=== PATIENT | female | born 1960 | race Caucasian/White ===

== ENCOUNTER → 2021-03-29 10:24 | Outpatient (BNVA) | payer OTHER, SELFPAY | PROVIDERS: PCP Family Medicine; Referring Provider Family Medicine; Visit Provider Surgery ==

== ENCOUNTER 2021-04-17 20:58 | Inpatient (IN) | payer OTHER, SELFPAY ==
--- NOTE | 2021-04-01 10:24 | ECG_ITS ---
Test Reason : SOB Blood Pressure : / mmHG Vent. Rate : 077 BPM Atrial Rate : 077 BPM P-R Int : 156 ms QRS Dur : 090 ms QT Int : 402 ms P-R-T Axes : 046 017 013 degrees QTc Int : 454 ms Normal sinus rhythm Nonspecific ST abnormality Abnormal ECG No previous ECGs available Referred By: Dorcas Sosa Electronically Signed By:VALENCIA THIBODEAUX MD
[2021-04-01 11:02] LABS: MANUAL DIFF FLAG NO
[2021-04-01 11:13] LABS: Basophils Percent Auto 0.2 % (0-2); Eosinophils Absolute Auto 0.1 X10*3/uL (0.0-0.4); Eosinophils Percent Auto 1.9 % (0-4); Hematocrit 39.3 % (37-47); Hemoglobin 12.8 g/dl (12.0-16.0); Imm Gran Abs Auto 0.02 X10*3/uL (0.00-0.03); Imm Gran Pct Auto 0.3 % (0.0-0.4); Lymphocytes Absolute Auto 1.6 X10*3/uL (1.2-4.9); Lymphocytes Percent Auto 27.3 % (20-40); Mean Corpuscular HGB Conc 32.6 g/dl (31.0-35.0); Mean Corpuscular Hemoglobin 28.7 pg (27.0-33.0); Mean Corpuscular Volume 88.1 fL (80-98); Mean Platelet Volume 10.5 fL (9.4-12.3); Monocytes Absolute Auto 0.6 X10*3/uL (0.1-1.2); Monocytes Percent Auto 9.6 % (2-11); Neutrophils Absolute Auto 3.6 X10*3/uL (2.0-8.3); Neutrophils Percent Auto 60.7 % (45-73); Platelet Count 287 X10*3/uL (160-400); Red Blood Count 4.46 X10*6/uL (4.20-5.50); Red Cell Distribution Width 12.4 % (11.0-16.0); White Blood Count 5.9 X10*3/uL (4.8-10.8)
[2021-04-01 11:20] LABS: Rheumatoid Factor < 15.0 IU/mL (<15.0)
[2021-04-01 11:22] LABS: INTERNATIONAL NORM RATIO 1.1 (0.9-1.1); Prothrombin Time 12.6 SEC (10.8-13.0)
[2021-04-01 11:27] LABS: Anion Gap 14 (12-20); Blood Urea Nitrogen 17 mg/dL (9-16); Calcium 8.9 mg/dL (8.4-10.2); Carbon Dioxide 25 mmol/L (22-29); Chloride 109 mmol/L (96-108); Estimated Glomerular Filt Rate > 60; Glucose Random 108 mg/dL (60-115); Potassium 4.1 mmol/L (3.3-5.1); Sodium 144 mmol/L (135-145)
[2021-04-01 11:42] LABS: Glucose Urine UA NEG (NEG); Leukocyte Esterase Urine NEG (NEG); Nitrite Urine NEG (NEG); Urine Blood NEG (NEG); Urine Ketones NEG (NEG); Urine Protein NEG (NEG-TRACE)
[2021-04-01 11:47] LABS: Partial Thromboplastin Time 40.8 SEC (24.1-38.0)
[2021-04-01 11:53] LABS: Appearance Urine CLEAR; Color Urine YELLOW
[2021-04-01 11:55] LABS: Erythrocyte Sedimentation Rate 8 MM/HR (0-20)
[2021-04-02 14:51] LABS: Complement C3 58 mg/dL (83-193)
[2021-04-04 12:21] LABS: IgA 197 mg/dL (47-310); IgG 707 mg/dL (600-1640); IgM 43 mg/dL (50-300)
[2021-04-05 23:06] LABS: Anti Nuclear Antibody Screen POSITIVE (NEGATIVE)
[2021-04-08 11:58] VITALS: BMI 37.7
--- NOTE | 2021-04-09 12:30 | P.CONAN_ITS ---
Documented by User: Vanessa Viktoriya 04/09/21 12:39 HPI - Anesthesia Eval Consult details Narrative: 61yo F for Hernia Repair Diaphragmatic Laparoscopic recent negative cardiac w/u for CP - per [facility] documentation, likely r/t costochondritis and hernia *multiple med allergies* PMF Active Problems Active Problems: All Active Problems (Updated 04/08/21 @ 12:02 by Maryam Hernandez) Obesity (Acute) Sliding hiatal hernia (Acute) Shortness of breath (Acute) Preoperative examination (Acute) Past Medical History Medical History Anxiety Arthritis Asthma Chest pain COVID-19 vaccine administered Depression GERD (gastroesophageal reflux disease) History of postoperative nausea and vomiting Hypothyroidism Renal cyst Vitamin B12 deficiency Family History Family History Father HTN (hypertension) COPD (chronic obstructive pulmonary disease) Heart disease Mother HTN (hypertension) Brother No problems noted. Sister No problems noted. Surgical History Surgical History H/O foot surgery H/O laparoscopy History of esophagogastroduodenoscopy (EGD) History of hand surgery History of repair of hiatal hernia History of sleeve gastrectomy Hx laparoscopic cholecystectomy Hx of appendectomy Hx of section Social History Social History Household Members: Spouse Housing: House Are you a primary prompt care rn to a significant other at home: No Do you presently have visiting nurse or other home services: No Use of substances other than those prescribed or required for medical reasons: No Have you been hit, kicked, punched, or otherwise hurt by someone within the past year? If so, by whom?: No Are you DNR?: No Advance Directives Information Provided: No Recently lost weight without trying: No Eating poorly because of decreased appetite: No Nutrition Risks: No Nutritional Risk Poor oral hygiene: No (has crowns) Meds Allergies Allergy/AdvReac Type Severity Reaction Status Date / Time latex Allergy Severe respiratory Verified 04/08/21 10:58 distress codeine Allergy Intermediate vomiting/hi Verified 04/08/21 10:58 ves hydrocodone Allergy Intermediate vomiting/hi Verified 04/08/21 11:01 ves meperidine [From Demerol] Allergy Intermediate vomiting/hi Verified 04/08/21 11:02 ves nabumetone [From Relafen] Allergy Intermediate vomiting/hi Verified 04/08/21 11:03 ves oxycodone Allergy Intermediate vomiting/hi Verified 04/08/21 11:02 ves tramadol [From Ultram] Allergy Intermediate vomiting/hi Verified 04/08/21 11:03 ves clams Allergy Unknown Unknown Verified 04/08/21 11:04 hazelnut Allergy Unknown Unknown Verified 04/08/21 11:04 Sulfa (Sulfonamide Allergy Unknown Unknown Verified 04/08/21 11:04 Antibiotics) Home Medications Medication Instructions Recorded Confirmed Last Taken Type biotin 5,000 mcg sublingual tablet 5,000 mcg SUBLINGUAL DAILY 03/29/21 04/08/21 Unknown History bupropion HCl 300 mg 24 hr tablet, 300 mg PO QAM 03/29/21 04/08/21 04/17/21 History extended release levothyroxine 88 mcg capsule 88 mcg PO DAILY 03/29/21 04/08/21 04/17/21 History multivitamin with minerals 1 cap PO DAILY 03/29/21 04/08/21 Unknown History pantoprazole 20 mg tablet,delayed 40 mg PO DAILY PRN tab 03/29/21 04/08/21 Unknown History release sertraline 25 mg tablet 25 mg PO DAILY 03/29/21 04/08/21 04/17/21 History albuterol sulfate [Ventolin HFA] 2 puff INHALATION Q4-6H PRN 04/08/21 04/08/21 Unknown History cyanocobalamin (vitamin B-12) 1 ml IM QMONTH 04/08/21 04/08/21 Unknown History Exam Exam Date and Time: April 09, 2021 1230 Height,Weight and Vital Signs: Height 5 ft 0.5 in Weight 89.086 kg Pertinent Lab Results Pertinent Lab Results: Laboratory Tests 04/01/21 04/01/21 04/01/21 10:36 10:36 10:36 WBC 5.9 RBC 4.46 Hgb 12.8 Hct 39.3 MCV 88.1 MCH 28.7 MCHC 32.6 RDW 12.4 Plt Count 287 MPV 10.5 Immature Gran % (Auto) 0.3 Neut % (Auto) 60.7 Lymph % (Auto) 27.3 [place] % (Auto) 9.6 Eos % (Auto) 1.9 Baso % (Auto) 0.2 Lymph # (Auto) 1.6 [place] # (Auto) 0.6 Eos # (Auto) 0.1 Baso # (Auto) 0.0 Abs Immat Gran (auto) 0.02 Absolute Neuts (auto) 3.6 Absolute Nucleated RBC 0.000 Nucleated RBC % (auto) 0.0 ESR PT 12.6 INR 1.1 APTT 40.8 H Sodium 144 Potassium 4.1 Chloride 109 H Carbon Dioxide 25 Anion Gap 14 BUN 17 H Creatinine 0.78 Estim Creat Clear Calc TNP Estimated GFR > 60 Random Glucose 108 Calcium 8.9 Urine Color Urine Appearance Urine pH Ur Specific [place] Urine Protein Urine Glucose (UA) Urine Ketones Urine Blood Urine Nitrite Ur Leukocyte Esterase IgG Total IgA Total IgM JAXSON Interpretation Rheumatoid Factor HALIE Screen HALIE Titer HALIE Titer 2 HALIE Titer 3 HALIE Pattern HALIE Pattern 2 HALIE Pattern 3 Complement C3 Complement C4 Blood Type Antibody Screen 04/01/21 04/01/21 04/01/21 10:36 10:36 10:36 WBC RBC Hgb Hct MCV MCH MCHC RDW Plt Count MPV Immature Gran % (Auto) Neut % (Auto) Lymph % (Auto) [place] % (Auto) Eos % (Auto) Baso % (Auto) Lymph # (Auto) [place] # (Auto) Eos # (Auto) Baso # (Auto) Abs Immat Gran (auto) Absolute Neuts (auto) Absolute Nucleated RBC Nucleated RBC % (auto) ESR 8 PT INR APTT Sodium Potassium Chloride Carbon Dioxide Anion Gap BUN Creatinine Estim Creat Clear Calc Estimated GFR Random Glucose Calcium Urine Color Urine Appearance Urine pH Ur Specific [place] Urine Protein Urine Glucose (UA) Urine Ketones Urine Blood Urine Nitrite Ur Leukocyte Esterase IgG Total IgA Total IgM JAXSON Interpretation Rheumatoid Factor HALIE Screen POSITIVE A HALIE Titer 1:80 H HALIE Titer 2 TNP HALIE Titer 3 TNP HALIE Pattern SEE NOTE HALIE Pattern 2 TNP HALIE Pattern 3 TNP Complement C3 Complement C4 Blood Type A Negative Antibody Screen NEGATIVE 04/01/21 04/01/21 04/01/21 10:36 10:36 Unknown WBC RBC Hgb Hct MCV MCH MCHC RDW Plt Count MPV Immature Gran % (Auto) Neut % (Auto) Lymph % (Auto) [place] % (Auto) Eos % (Auto) Baso % (Auto) Lymph # (Auto) [place] # (Auto) Eos # (Auto) Baso # (Auto) Abs Immat Gran (auto) Absolute Neuts (auto) Absolute Nucleated RBC Nucleated RBC % (auto) ESR PT INR APTT Sodium Potassium Chloride Carbon Dioxide Anion Gap BUN Creatinine Estim Creat Clear Calc Estimated GFR Random Glucose Calcium Urine Color YELLOW Urine Appearance CLEAR Urine pH 6.0 Ur Specific [place] 1.020 Urine Protein NEG Urine Glucose (UA) NEG Urine Ketones NEG Urine Blood NEG Urine Nitrite NEG Ur Leukocyte Esterase NEG IgG Total 707 IgA Total 197 IgM 43 L JAXSON Interpretation SEE NOTE Rheumatoid Factor < 15.0 HALIE Screen HALIE Titer HALIE Titer 2 HALIE Titer 3 HALIE Pattern HALIE Pattern 2 HALIE Pattern 3 Complement C3 58 L Complement C4 15 Blood Type Antibody Screen Narrative Narrative: EKG 03/2021 Vent. Rate : 077 BPM Atrial Rate : 077 BPM P-R Int : 156 ms QRS Dur : 090 ms QT Int : 402 ms P-R-T Axes : 046 017 013 degrees QTc Int : 454 ms Normal sinus rhythm Nonspecific ST abnormality Abnormal ECG No previous ECGs available CXR 03/2021 Mild pulmonary vascular congestion, otherwise unremarkable Exercise stress 03/2021: No ischemic EKG changes 04/25 chest pain Mildly abnormal stress MIBI 03/2021 Myocardial perfusion imaging is normal without any fixed or reversible perfusion defect after exercise stress test LV function is normal at rest and with stress with normal wall motion and thickening Assessment and Plan Assessment Anesthesia Assessment: Chart Reviewed Documented by User: Isabel Geller 04/17/21 15:52 [facility] Past Medical History Medical History Anxiety Arthritis Asthma Chest pain COVID-19 vaccine administered Depression GERD (gastroesophageal reflux disease) History of postoperative nausea and vomiting Hypothyroidism Renal cyst Vitamin B12 deficiency Family History Family History Father HTN (hypertension) COPD (chronic obstructive pulmonary disease) Heart disease Mother HTN (hypertension) Brother No problems noted. Sister No problems noted. Surgical History Surgical History H/O foot surgery H/O laparoscopy History of esophagogastroduodenoscopy (EGD) History of hand surgery History of repair of hiatal hernia History of sleeve gastrectomy Hx laparoscopic cholecystectomy Hx of appendectomy Hx of section Social History Social History Household Members: Spouse Housing: House Are you a primary prompt care rn to a significant other at home: No Do you presently have visiting nurse or other home services: No Use of substances other than those prescribed or required for medical reasons: No Have you been hit, kicked, punched, or otherwise hurt by someone within the past year? If so, by whom?: No Are you DNR?: No Advance Directives Information Provided: No Recently lost weight without trying: No Eating poorly because of decreased appetite: No Nutrition Risks: No Nutritional Risk Poor oral hygiene: No (has crowns) Meds Allergies Allergy/AdvReac Type Severity Reaction Status Date / Time latex Allergy Severe respiratory Verified 04/08/21 10:58 distress codeine Allergy Intermediate vomiting/hi Verified 04/08/21 10:58 ves hydrocodone Allergy Intermediate vomiting/hi Verified 04/08/21 11:01 ves meperidine [From Demerol] Allergy Intermediate vomiting/hi Verified 04/08/21 11:02 ves nabumetone [From Relafen] Allergy Intermediate vomiting/hi Verified 04/08/21 1 1:03 ves oxycodone Allergy Intermediate vomiting/hi Verified 04/08/21 11:02 ves tramadol [From Ultram] Allergy Intermediate vomiting/hi Verified 04/08/21 11:03 ves clams Allergy Unknown Unknown Verified 04/08/21 11:04 hazelnut Allergy Unknown Unknown Verified 04/08/21 11:04 Sulfa (Sulfonamide Allergy Unknown Unknown Verified 04/08/21 11:04 Antibiotics) Home Medications Medication Instructions Recorded Confirmed Last Taken Type biotin 5,000 mcg sublingual tablet 5,000 mcg SUBLINGUAL DAILY 03/29/21 04/08/21 Unknown History bupropion HCl 300 mg 24 hr tablet, 300 mg PO QAM 03/29/21 04/08/21 04/17/21 History extended release levothyroxine 88 mcg capsule 88 mcg PO DAILY 03/29/21 04/08/21 04/17/21 History multivitamin with minerals 1 cap PO DAILY 03/29/21 04/08/21 Unknown History pantoprazole 20 mg tablet,delayed 40 mg PO DAILY PRN tab 03/29/21 04/08/21 Unknown History release sertraline 25 mg tablet 25 mg PO DAILY 03/29/21 04/08/21 04/17/21 History albuterol sulfate [Ventolin HFA] 2 puff INHALATION Q4-6H PRN 04/08/21 04/08/21 Unknown History cyanocobalamin (vitamin B-12) 1 ml IM QMONTH 04/08/21 04/08/21 Unknown History Exam Airway Mallampati Class: II TM Dist: >3cm Neck ROM: Full Loose/Missing/Broken Teeth: No Heart: RRR Lungs: CTA 5 Assessment and Plan Assessment Anesthesia Assessment: Anesthesia Plan Discussed and Chart Reviewed Final Anesthetic Review NPO: Yes ASA Class: II Final Preanesthetic Review: Meds/Allgs Chart Reviewed, Consent Obtained/Reviewed and Anes Risks/Benef Reviewed Patient Risk: Low Procedure Risk: Intermediate Anesthetic Plan Anesthetic Plan: GA Disposition: Standard PACU
--- NOTE | 2021-04-16 16:12 | MHC.SHP ---
Pre-Procedural Eval Section B Chief Complaint: diaphragmatic hernia Allergies: Allergies Allergy/AdvReac Type Severity Reaction Status Date / Time latex Allergy Severe respiratory Verified 04/08/21 10:58 distress codeine Allergy Intermediate vomiting/hi Verified 04/08/21 10:58 ves hydrocodone Allergy Intermediate vomiting/hi Verified 04/08/21 11:01 ves meperidine [From Demerol] Allergy Intermediate vomiting/hi Verified 04/08/21 11:02 ves nabumetone [From Relafen] Allergy Intermediate vomiting/hi Verified 04/08/21 11:03 ves oxycodone Allergy Intermediate vomiting/hi Verified 04/08/21 11:02 ves tramadol [From Ultram] Allergy Intermediate vomiting/hi Verified 04/08/21 11:03 ves clams Allergy Unknown Unknown Verified 04/08/21 11:04 hazelnut Allergy Unknown Unknown Verified 04/08/21 11:04 Sulfa (Sulfonamide Allergy Unknown Unknown Verified 04/08/21 11:04 Antibiotics) Plan I have reviewed the history and physical and performed a pertinent physical examination on my patient. No changes have occurred unless specified.
[2021-04-17] VITALS (14 sets, daily range): BP systolic 138–182; BP diastolic 64–85; PULSE 73–95; RESP 16–82; TEMP 36.1–36.5; O2SAT 94–100
[2021-04-17 13:32] LABS: COVID-19 Test Negative (Negative)
[2021-04-17] MEDS: Lactated Ringers 1,000 ML 100 ML IVCONT (13:35)
[2021-04-17] MEDS: ceFAZolin Sodium/Dextrose,Iso 2 GM/50 ML PIGGYBACK IV (13:36)
--- NOTE | 2021-04-17 14:27 | PM.OP ---
Brief Operative Note Date of Service: 04/17/21 Pre-op diagnosis: sliding hiatal hernia, gastroesophageal reflux disease, and chest pain Post-op diagnosis: same Procedure: Laparoscopic paraesophageal hernia repair Implants: None Surgeon: Dorcas Sosa MD Anesthesia: GETA Was an Senior Ui Software Engineer used for this Procedure?: No Senior Ui Software Engineer: Alka Sanchez Estimated blood loss (mL): 5 Pathology: none sent Condition: stable Disposition: PACU
[2021-04-17] MEDS: Scopolamine 1.5 MG PATCH.TD.3 TRANSDERMA (15:20)
--- NOTE | 2021-04-17 18:17 | P.OP_ITS ---
Operative Note Operative Note Date of Service: 04/17/21 Narrative: Patient was brought to the operating room placed on the table in supine position. General anesthesia was induced. The abdomen was prepped and draped in normal sterile fashion using ChloraPrep. Patient had artery received 2 g of IV Kefzol preoperatively and normal DVT prophylaxis was instituted. A safety time-out was performed. Next a mixture of 1% lidocaine with epinephrine 0.25% Marcaine plain was used to anesthetize the planned incision site in the left upper quadrant. A 11. Scalpel used to make a 5 mm left upper quadrant subcostal surgical incision through which a Veress needle was placed intra- abdominal. Three pops were heard going to the fascia. The saline drop test was used to confirm that the Veress needle was intra-abdominal . The abdominal cavity was insufflated to 15 mm of mercury. Next the Optiview technique was used to place a 5 mm port in the patient's left upper quadrant . We visualized inside the abdomen and there were several loose adhesions of the omentum to the lower abdominal wall and also some loose adhesions of a loop of small bowel to the lower midline abdominal wall there was no evidence of obstruction of this bowel loop. We then performed a GORAN block on the right side of the patient's abdomen. We then placed a Ana liver tractor the subxiphoid position under direct vision and used this to hold up the left lobe of the liver to the anterior abdominal wall. We secured the liver tractor to the bed using the liver retractor umanzor. We then placed a 5 mm port in the patient's right upper quadrant and a 12 mm port in the epigastrium under direct vision. We then performed the same GORAN block on the left side of the abdomen. We placed 1 additional 5 mm port in the patient's left upper quadrant just lateral to the placement of the 1st 5 mm left upper quadrant port. Next we placed the patient in reverse Trendelenburg positioning. We could visualize a large paraesophageal hernia with a portion of the gastric pouch from previous sleeve gastrectomy residing within the chest. We took down the adhesions of the stomach to the phrenoesophageal ligament circumferentially. Once the phrenoesophageal ligament was cleared circumferentially especially post eriorly we used a Kecia drain around the GE junction and secured the ends to each other using a Endoknot. We used the Holton as a fulcrum to retract the GE junction in order to get the posterior and anterior hiatus closed. We closed the posterior hiatus with a total of 3 2-0 Ethibond sutures. We closed the anterior hiatus with a total of 2 2-0 Ethibond sutures. The stomach was lying in the abdomen without any tension. We then let down the Ana liver tractor removed from the abdomen. We closed the 12 mm port site with a single suture of 0 Maxon using a laparoscopic suture passer. We removed the left upper quadrant ports under direct vision there was no bleeding noted from these port sites. We desufflated the abdomen through the last remaining port removed last ports and laparoscopic. We reapproximated all skin incisions with a 4 Monocryl subcuticular stitch. We cleaned and dried the skin incisions and applied Dermabond skin glue to all skin incisions. All counts were correct at the end the case there were no complications. The patient was awake and in stable condition prior to extubation and transfer to the recovery room.
[2021-04-17] MEDS: Haloperidol Lactate 5 MG/ML VIAL IV (19:39)
--- NOTE | 2021-04-17 20:49 | PC.NURSE ---
2047 Dr Sosa s office called regarding the patient and [place] [employer] Heather Sanchez information security risk analyst and the service stated they would call her
[2021-04-17] MEDS: ondansetron HCL 4 MG/2 ML VIAL IVPUSH (22:38)
[2021-04-17] MEDS: Famotidine/PF 20 MG/2 ML VIAL IVPUSH (22:38)
[2021-04-17] MEDS: Lactated Ringers 1,000 ML 75 ML IVCONT (23:20)
[2021-04-18 02:20] VITALS: RESP 16
[2021-04-18] MEDS: cefoTEtan disodium 2 GM in 0.9 % Sodium Chloride 50 ML IV (03:59)
[2021-04-18 06:00] VITALS: BP 143/74; PULSE 65; RESP 16; TEMP 36.5; O2SAT 97
[2021-04-18 06:25] LABS: MANUAL DIFF FLAG NO
[2021-04-18] MEDS: ondansetron HCL 4 MG/2 ML VIAL IVPUSH (06:34)
[2021-04-18 06:51] LABS: Hematocrit 36.9 % (37-47); Hemoglobin 12.2 g/dl (12.0-16.0); Imm Gran Abs Auto 0.03 X10*3/uL (0.00-0.03); Imm Gran Pct Auto 0.3 % (0.0-0.4); Lymphocytes Absolute Auto 0.8 X10*3/uL (1.2-4.9); Lymphocytes Percent Auto 9.3 % (20-40); Mean Corpuscular HGB Conc 33.1 g/dl (31.0-35.0); Mean Corpuscular Volume 87.6 fL (80-98); Mean Platelet Volume 10.8 fL (9.4-12.3); Monocytes Absolute Auto 0.5 X10*3/uL (0.1-1.2); Monocytes Percent Auto 5.3 % (2-11); Neutrophils Absolute Auto 7.5 X10*3/uL (2.0-8.3); Neutrophils Percent Auto 85.1 % (45-73); Platelet Count 266 X10*3/uL (160-400); Red Blood Count 4.21 X10*6/uL (4.20-5.50); Red Cell Distribution Width 12.6 % (11.0-16.0); White Blood Count 8.9 X10*3/uL (4.8-10.8)
[2021-04-18 07:00] LABS: Anion Gap 12 (12-20); Blood Urea Nitrogen 8 mg/dL (9-16); Calcium 9.1 mg/dL (8.4-10.2); Carbon Dioxide 26 mmol/L (22-29); Chloride 106 mmol/L (96-108); Creatinine Clr Calc Pharmacy 64.6; Estimated Glomerular Filt Rate > 60; Glucose Random 139 mg/dL (60-115); Potassium 4.3 mmol/L (3.3-5.1); Sodium 140 mmol/L (135-145)
[2021-04-18] MEDS: Famotidine/PF 20 MG/2 ML VIAL IVPUSH (08:10)
--- NOTE | 2021-04-18 09:07 | PM.PNGS ---
Subjective Subjective Date of Service: 04/18/21 Interval history: Patient feeling well, pain controlled. She is tolerating small amounts of pureed diet. She denies nausea vomiting. Vital signs are within normal limits. Physical Exam Vital Signs: Vital Signs: Last Vital Signs Temp 97.7 F 04/18/21 06:00 Pulse 65 04/18/21 06:00 Resp 16 04/18/21 06:00 BP 143/74 H 04/18/21 06:00 Pulse Ox 97 04/18/21 06:00 Body Mass Index 37.7 Const: General: cooperative, healthy appearing, comfortable and no acute distress GI: Other: Soft mild appropriate incisional tenderness. Incisions are clean dry intact. Dermabond is in place. Extrem: General: Yes normal to inspection, Yes full ROM, Yes no clubbing, cyanosis or edema and Yes no calf tenderness Progress Note: A&P Assessment and plan (1) History of repair of hiatal hernia: Status: Acute Assessment and Plan: This is a 61-year-old lady who underwent a laparoscopic laparoscopic repair of a large paraesophageal hernia. Patient doing well today. She will be discharged home to follow up with me in 2 weeks. Fall Risk Details Current Medications: Current Medications Generic Name Dose Route Start Last Admin Trade Name Freq PRN Reason Stop Dose Admin Famotidine 20 mg 04/17/21 22:20 04/18/21 08:10 Famotidine/Pf 20 Mg/2 Ml Vial IVPUSH 20 mg BID NARINDER Administration Lactated Ringer's 1,000 mls @ 75 mls/hr 04/17/21 22:20 04/17/21 23:20 Lr IVCONT 75 mls/hr .[id number] NARINDER Administration Acetaminophen 1,000 mg in 100 mls @ 16.7 mls/hr 04/17/21 23:00 04/18/21 04:28 Ofirmev IV 16.7 mls/hr .Q6H NARINDER Administration Metoclopramide HCl 10 mg 04/17/21 22:20 Metoclopramide Hcl 10 Mg/2 Ml Vial IVPUSH Q6H PRN Nausea Ondansetron HCl 4 mg 04/17/21 22:20 04/18/21 06:34 Ondansetron Hcl 4 Mg/2 Ml Vial IVPUSH 4 mg Q8H NARINDER Administration Sodium Chloride 3 ml 04/18/21 00:00 04/18/21 07:28 0.9 % Sodium Chloride Flush 3 Ml Syringe IVFLUSH Not Given QSHIFT NARINDER Time Spent With Patient Time: Total time spent is greater than 50% in coordination of care (as documented) at patient's floor/unit and/or counseling patient: Time with patient: less than 15 minutes Procedures Date of Service Date of Service: 04/18/21
--- NOTE | 2021-04-18 09:10 | PM.DS ---
DS: Providers Provider Date of Service: 04/18/21 Date of admission: 04/17/21 20:58 Date of discharge: 04/18/21 Primary care physician: Sachi Sanchez MD Admitting clinician: Dorcas Sosa Attending physician on admission: Dorcas Sosa Attending physician on discharge: Dorcas Sosa Discharging clinician: Dorcas Sosa DS: Diagnosis Discharge Diagnosis (1) History of repair of hiatal hernia: Status: Acute DS: Medications Discharge Medications Home Medications: Home Medications Medication Instructions Recorded Confirmed biotin 5,000 mcg sublingual tablet 5,000 mcg SUBLINGUAL DAILY 03/29/21 04/08/21 bupropion HCl 300 mg 24 hr tablet, 300 mg PO QAM 03/29/21 04/08/21 extended release levothyroxine 88 mcg capsule 88 mcg PO DAILY 03/29/21 04/08/21 multivitamin with minerals 1 cap PO DAILY 03/29/21 04/08/21 pantoprazole 20 mg tablet,delayed 40 mg PO DAILY PRN tab 03/29/21 04/08/21 release sertraline 25 mg tablet 25 mg PO DAILY 03/29/21 04/08/21 albuterol sulfate [Ventolin HFA] 2 puff INHALATION Q4-6H PRN 04/08/21 04/08/21 cyanocobalamin (vitamin B-12) 1 ml IM QMONTH 04/08/21 04/08/21 Previous Rx's Medication Instructions Recorded acetaminophen 1,000 mg PO Q6H #60 tab 04/17/21 docusate sodium [Colace] 100 mg PO BID #30 cap 04/17/21 hydromorphone [Dilaudid] 2 mg PO Q4H PRN #10 tab 04/17/21 ondansetron HCl 4 mg tablet 4 mg PO Q6H PRN #30 tab 04/17/21 DS: Summary Hospital Course Hospital Course: This is a 61-year-old lady who was admitted electively for a repair of a large paraesophageal hernia. Patient underwent laparoscopic repair of paraesophageal hernia and did well postoperatively. Patient had surgery finished late in the day and had some nausea following that. Given the patient's nausea patient was admitted overnight. Following day the patient was doing well she was tolerating small amounts pureed diet vital signs within normal limits and the patient was discharged home. Time Spent with Patient Time attestation: Total time spent providing and/or coordinating discharge services: Discharge coordination time: Less than 30 minutes Quality: Stroke Does the patient have a stroke diagnosis?: No Physical Exam Vital Signs: Vital Signs: Last Vital Signs Temp 97.7 F 04/18/21 06:00 Pulse 65 04/18/21 06:00 Resp 16 04/18/21 06:00 BP 143/74 H 04/18/21 06:00 Pulse Ox 97 04/18/21 06:00 Body Mass Index 37.7 DS: Data Data Completed and Pending Labs on day of discharge: Laboratory Results - last 24 hr 04/17/21 04/17/21 04/18/21 13:09 13:45 05:50 WBC 8.9 RBC 4.21 Hgb 12.2 Hct 36.9 L MCV 87.6 MCH 29.0 MCHC 33.1 RDW 12.6 Plt Count 266 MPV 10.8 Immature Gran % (Auto) 0.3 Neut % (Auto) 85.1 H Lymph % (Auto) 9.3 L [place] % (Auto) 5.3 Eos % (Auto) 0.0 Baso % (Auto) 0.0 Lymph # (Auto) 0.8 L [place] # (Auto) 0.5 Eos # (Auto) 0.0 Baso # (Auto) 0.0 Abs Immat Gran (auto) 0.03 Absolute Neuts (auto) 7.5 Absolute Nucleated RBC 0.000 Nucleated RBC % (auto) 0.0 Sodium Potassium Chloride Carbon Dioxide Anion Gap BUN Creatinine Estim Creat Clear Calc Estimated GFR Random Glucose Calcium COVID-19 ([facility]) Negative COVID-19 Clin Com See Note Blood Type A Negative Antibody Screen NEGATIVE 04/18/21 05:50 WBC RBC Hgb Hct MCV MCH MCHC RDW Plt Count MPV Immature Gran % (Auto) Neut % (Auto) Lymph % (Auto) [place] % (Auto) Eos % (Auto) Baso % (Auto) Lymph # (Auto) [place] # (Auto) Eos # (Auto) Baso # (Auto) Abs Immat Gran (auto) Absolute Neuts (auto) Absolute Nucleated RBC Nucleated RBC % (auto) Sodium 140 Potassium 4.3 Chloride 106 Carbon Dioxide 26 Anion Gap 12 BUN 8 L D Creatinine 0.92 Estim Creat Clear Calc 64.6 Estimated GFR > 60 Random Glucose 139 H Calcium 9.1 COVID-19 ([facility]) COVID-19 Clin Com Blood Type Antibody Screen Discharge Plan Discharge Anticipated Discharge Date/Time: 04/18/21 10:15 Patient Disposition: Home, Self-Care Discharge Diagnosis: s/p repair hiatal hernia Referrals: Sachi Sanchez MD [Primary Care Provider] - 1 Week Discharge Medications: New hydromorphone [Dilaudid] 2 mg tablet 2 mg PO Q4H PRN (Reason: pain) Qty: 10 RF: 0 acetaminophen 500 mg tablet 1,000 mg PO Q6H Qty: 60 RF: 1 docusate sodium [Colace] 100 mg capsule 100 mg PO BID Qty: 30 RF: 1 Continued ondansetron HCl [Zofran] 4 mg tablet 4 mg PO Q6H PRN (Reason: nausea and vomiting) Qty: 30 RF: 1 cyanocobalamin (vitamin B-12) 1,000 mcg/mL solution 1 ml IM QMONTH RF: 0 albuterol sulfate [Ventolin HFA] 90 mcg/actuation Hfa Aerosol Inhaler 2 puff INHALATION Q4-6H PRN (Reason: Shortness Of Breath Or Wheezing) RF: 0 levothyroxine 88 mcg capsule 88 mcg PO DAILY RF: 0 bupropion HCl [Wellbutrin XL] 300 mg tablet extended release 24 hr 300 mg PO QAM RF: 0 sertraline [Zoloft] 25 mg tablet 25 mg PO DAILY RF: 0 pantoprazole 20 mg tablet,delayed release (DR/EC) 40 mg PO DAILY PRN (Reason: Acid Reflux) RF: 0 multivitamin with minerals Capsule 1 cap PO DAILY RF: 0 biotin 5,000 mcg tablet, sublingual 5,000 mcg sublingual DAILY RF: 0 Discharge Orders: Discharge Order (Routine); Ordered 04/18/21 Ordered By: Dorcas Sosa Diet: regular diet Activity on Discharge: No heavy lifting Activity Restrictions/Additional Instructions: You should remain on a pureed diet for the next 2 weeks. You should avoid all heavy lifting greater than 5-10 lb for the next 4 weeks. You should follow-up with Dr. Sosa in the office in 2 weeks time frame. Call the office at [phone] to schedule a follow-up appointment. You should also call the office with any questions or concerns such as increasing abdominal pain, persistent nausea vomiting, fever, chills, shortness of breath, chest pain. Care Plan Goals: no abd pain Health Concerns: repair hiatal hernia Plan of Treatment: see discharge instructions Assessment: stable POD #1 s/p hiatal hernia repair
--- NOTE | 2021-04-18 09:25 | MHC.CM.PN ---
CM MET WITH PT WHO REPORTS SHE LIVES AT HOME WITH HER AND IS INDEPENDENT WITH ALL CARE AND MOBILITY. PT DENIES THE USE OF ANY DME OR HOME SERVICES. PT CONFIRMS HER PCP IS YVON YOON AND SAYS SHE HAS A HCP COMPLETED ALREADY. PT WILL DC HOME TODAY WITH NO SERVICES WILL TRANSPORT
--- NOTE | 2021-04-19 06:46 | HO.POSTANES ---
Post Anesthesia Evaluation Post Anesthesia Evaluation Vital Signs: patient seen 04/18/21 at 718am. vitals stable Anesthesia: General Endotracheal-GETA Mental Status: Awake Pain Control: Satisfactory Nausea/Vomiting: None Hydration: Adequate Anesthesia-Related Issues: No Anes. Related Issues
== END 2021-04-18 09:48 | disposition home or self-care (01) | DRG 328 ==
LOC: HO.S3 21:11
PROVIDERS: Physician Assistant; Admitting Provider Surgery; PCP Family Medicine; Visit Provider Surgery
PROC: 0BQT4ZZ Repair Diaphragm, Percutaneous Endoscopic Approach (ICD-10-PCS; CPT 43280; principal; 2021-04-17 14:30)
DX: K44.9 Diaphragmatic hernia without obstruction or gangrene (principal); E03.9 Hypothyroidism, unspecified; Z20.822 Contact with and (suspected) exposure to COVID-19; Z88.2 Allergy status to sulfonamides; Z88.5 Allergy status to narcotic agent; Z79.890 Hormone replacement therapy; Z79.899 Other long term (current) drug therapy
CPT/HCPCS: 43280; 36415; 80048; 81003; 82784; 85025; 85610; 85652; 85730; 86038; 86039; 86160; 86334; 86431; 86850; 86900; 86901; 87635; 93005; 99024; C1776; J0131; J0690; J1100; J2250; J2405; J2550; J3010

== ENCOUNTER → 2021-05-06 10:38 | Outpatient (BNVA) | payer OTHER, SELFPAY | PROVIDERS: PCP Family Medicine; Visit Provider Surgery ==

== ENCOUNTER → 2021-05-17 10:22 | Outpatient (BNVA) | payer OTHER, SELFPAY | PROVIDERS: PCP Family Medicine; Referring Provider Family Medicine; Visit Provider Surgery ==

== ENCOUNTER → 2021-06-03 14:07 | Outpatient (BNVA) | payer OTHER, SELFPAY | PROVIDERS: PCP Family Medicine; Visit Provider Surgery ==

== ENCOUNTER → 2021-08-23 10:44 | Outpatient (BNVA) | payer OTHER, SELFPAY | PROVIDERS: PCP Family Medicine; Referring Provider Family Medicine; Visit Provider Surgery ==